=== PATIENT | female | born 1955 | race Caucasian/White ===

== ENCOUNTER 2016-10-02 13:29 | Emergency (ER) | payer MEDICAID ==
[2014-05-28 14:40] VITALS: BMI 36.1
[~2016-10-02 13:29] MED LIST: COUMADIN10 MG PO; COUMADIN5 MG PO; CYMBALTA60 MG PO; HYDROCODONE-APA1 TAB PO; NEURONTIN600 MG PO; PLAVIX75 MG PO; PRINIVIL20 MG PO; ULTRAM50 MG PO; VALIUM10 MG PO
== END 2016-10-02 15:59 | disposition home or self-care (01) ==
LOC: D.ER 13:29
DX: M54.10 Radiculopathy, site unspecified (principal)

== ENCOUNTER 2016-12-21 11:35 | Emergency (ER) | payer MEDICAID ==
[2014-05-28 14:40] VITALS: BMI 36.1
== END 2016-12-21 13:22 | disposition left against medical advice (07) ==
LOC: D.ER 11:35
DX: M25.559 Pain in unspecified hip (principal)

== ENCOUNTER 2016-12-30 11:46 | Emergency (ER) | payer MEDICAID ==
[2014-05-28 14:40] VITALS: BMI 36.1
[2016-12-30 12:49] LABS: BASOPHILS 0.9 % (0-2); EOSINOPHILS 23.4 % (0-7); HEMATOCRIT 36.2 % (36.0-48.0); HEMOGLOBIN 11.8 g/dL (12-16); IMMATURE GRANULOCYTES 0.4 % (0-5); LYMPHOCYTES 29.6 % (15-50); MCH 29.1 pg (26.0-34.0); MCHC 32.6 g/dL (31.0-37.0); MCV 89.4 fL (80.0-100.0); MONOCYTES 5.3 % (2-11); NEUTROPHILS 40.4 % (40-80); RBC 4.05 10x6/uL (4.00-5.40); RDW 15.3 % (11.5-14.5); WBC 10.4 10x3/uL (4.8-10.8)
[2016-12-30 12:50] LABS: PLATELET COUNT 393 10x3/uL (130-400)
[2016-12-30 12:58] LABS: INR 1.9 (0.85-1.17); PROTIME 21.7 SECONDS (11.6-15.0)
[2016-12-30 13:02] LABS: UDS - AMPHET NEGATIVE QUAL (NEGATIVE); UDS - BARB NEGATIVE QUAL (NEGATIVE); UDS - BENZO POSITIVE QUAL (NEGATIVE); UDS - COCAINE NEGATIVE QUAL (NEGATIVE); UDS - METH NEGATIVE QUAL (NEGATIVE); UDS - OPIATE NEGATIVE QUAL (NEGATIVE); UDS - PCP NEGATIVE QUAL (NEGATIVE); UDS - THC NEGATIVE QUAL (NEGATIVE)
[2016-12-30 13:04] LABS: ALBUMIN 3.4 g/dL (3.4-5.0); ANION GAP 12.7 mmol/L (8-16); APPEARANCE CLEAR (CLEAR); BILIRUBIN - TOTAL 0.17 mg/dL (0.2-1.3); CARBON DIOXIDE 26.5 mmol/L (21.0-32.0); COLOR YELLOW (YELLOW); CREATININE - SERUM 0.9 mg/dL (0.6-1.3); POTASSIUM - SERUM 4.2 mmol/L (3.5-5.1); PROTEIN - SERUM 7.1 g/dL (6.4-8.2)
[2016-12-30 13:05] LABS: BACTERIA FEW /hpf (NONE SEEN); BILIRUBIN NEGATIVE (NEGATIVE); EPITHELIAL CELLS 0-5 /hpf (0-5); GLUCOSE NEGATIVE (NEGATIVE); KETONE NEGATIVE (NEGATIVE); LEUKOCYTE ESTERASE TRACE (NEGATIVE); MUCUS <1+ /lpf (NONE SEEN); NITRITE NEGATIVE (NEGATIVE); PROTEIN NEGATIVE (NEGATIVE); UROBILINOGEN NORMAL (NORMAL); WHITE CELLS - URINE 0-5 /hpf (0-5)
== END 2016-12-30 15:25 | disposition home or self-care (01) ==
LOC: D.ER 11:46
PROVIDERS: Nurse Practitioner Family
DX: M25.50 Pain in unspecified joint (principal); J44.9 Chronic obstructive pulmonary disease, unspecified

== ENCOUNTER 2017-03-05 10:58 | Inpatient (IN) | payer MEDICAID ==
[2017-03-05 11:52] LABS: BASOPHILS 0.6 % (0-2); EOSINOPHILS 12.4 % (0-7); HEMATOCRIT 34.9 % (36.0-48.0); HEMOGLOBIN 10.8 g/dL (12-16); IMMATURE GRANULOCYTES 0.6 % (0-5); LYMPHOCYTES 23.5 % (15-50); MCH 28.3 pg (26.0-34.0); MCHC 30.9 g/dL (31.0-37.0); MCV 91.6 fL (80.0-100.0); MEAN PLATELET VOLUME 8.9 fL (7.4-10.4); MONOCYTES 9.5 % (2-11); NEUTROPHILS 53.4 % (40-80); PLATELET COUNT 347 10x3/uL (130-400); RBC 3.81 10x6/uL (4.00-5.40); RDW 15.4 % (11.5-14.5)
[2017-03-05 12:26] LABS: ALBUMIN 3.7 g/dL (3.4-5.0); ANION GAP 15.5 mmol/L (8-16); CALCIUM 9.6 mg/dL (8.5-10.1); CREATININE - SERUM 1.7 mg/dL (0.6-1.3); POTASSIUM - SERUM 4.5 mmol/L (3.5-5.1); PROTEIN - SERUM 6.9 g/dL (6.4-8.2)
[2017-03-05 12:35] LABS: BILIRUBIN - TOTAL 0.1 mg/dL (0.2-1.3)
[2017-03-05 13:01] LABS: APPEARANCE HAZY (CLEAR); BACTERIA MANY /hpf (NONE SEEN); BILIRUBIN NEGATIVE (NEGATIVE); COLOR YELLOW (YELLOW); EPITHELIAL CELLS 0-5 /hpf (0-5); GLUCOSE NEGATIVE (NEGATIVE); HYALINE CAST 0-5 /lpf (NONE SEEN); KETONE NEGATIVE (NEGATIVE); MUCUS >1+ /lpf (NONE SEEN); NITRITE POSITIVE (NEGATIVE); PROTEIN NEGATIVE (NEGATIVE); RED CELLS - URINE 0-5 /hpf (0-5); SPECIFIC GRAVITY 1.015 (1.005-1.020); UROBILINOGEN NORMAL (NORMAL)
[2017-03-05 13:02] LABS: AMORPHOUS SEDIMENT <1+ /lpf (NONE SEEN)
[2017-03-05 13:42] LABS: INR 1.48 (0.85-1.17); PROTIME 17.8 SECONDS (11.6-15.0)
[2017-03-05 13:43] LABS: APTT 36.7 SECONDS (22.8-39.4)
--- NOTE | 2017-03-05 20:30 | NUR ---
2030: Notified ER that bed is ready. Report recieved.
[2017-03-05 22:10] VITALS: BP 105/75
[2017-03-05] MEDS ORDERED: COUMADIN7.5 MG PO (22:11)
[2017-03-05] MEDS ORDERED: HYSINGLA ER30 MG PO (22:14)
[2017-03-05 22:24] VITALS: BP 128/81; BMI 33.9
--- NOTE | 2017-03-05 22:30 | NUR ---
2230: Pt arrived from ED via STR. Pt transferred to bed x3 RNs without difficulty. All monitors established and alarms on.
[2017-03-05 22:34] VITALS: BP 128/81
--- NOTE | 2017-03-05 22:40 | NUR ---
2240: Pt states she has no intention of harming self or others. Verbal contract made with patient to inform nurse of any changes. Pt states she has "been just going a lot lately and was real tired." Pt went on to state she has fibromyalgia and spasms in her right leg that are painful. Pt states she beleives she took too much medicine just trying to feel better, but did not want to harm herself.
--- NOTE | 2017-03-05 22:45 | NUR ---
2245: Pt rec'd resting HOB 30 degrees with eyes open to verbal. Pupils DAMARI+ bilat. SMCx4=bilat colliery clerk with commands. Pt conversive and speech is clear at this time. Pt c/o chronic pain in right leg and states she has fibromyalgia and has had previoud DVTs and stents in lower extrem. Pt breathing 022LNC with RR 18x with SPO2 97%. Lungs with crackles heard throughout with auscultation and MMP with no cyanosis noted. ABD soft NT BSx4 active. Pt states she has urinary frequeuncy and urgency at times. Bed alarm on and audible. Discussed fall risk with patient and she verbalized understanding.
--- NOTE | 2017-03-05 22:50 | NUR ---
2250: Pt requested water. Provided water at this time. Pt had no difficulty with swallow or speech at this time.
--- NOTE | 2017-03-05 23:00 | NUR ---
2300: Pt son called and update provided at this time.
--- NOTE | 2017-03-05 23:00 | NUR ---
2300: Pt requested bedpan. Bedpan placed and pt urinated small amount of clear, yellow UOP.
[2017-03-05 23:10] VITALS: BP 92/58
[2017-03-06] VITALS (23 sets, daily range): BP systolic 86–154; BP diastolic 52–93
--- NOTE | 2017-03-06 | NUR ---
0000: Pt resting with eyes closed at this time. Pt SR 70's on CM with SBP 120-130, remains on 022LNC with [id number] with SPO2 97%. Right arm PIV intact and remains saline locked at this time.
--- NOTE | 2017-03-06 01:00 | NUR ---
0100: Pt son called and states "this is not a suicide note." Pt went on in detail regarding his belief that something he found at home he previously thought was a suicide note, but now he thinks this is from some other time and is not a suicide note at all. Reassured family, but still seemed very concerned about patient condition, and states he was very worried that the trouble he caused. Pt son was rambiling and difficult to follow through conversation. Continued sometime about pt being a free spirit, rode with Veronique Gibbs, and quoted Jamal Veras. Continued to apologize for trouble. State's he is "flabbergasted."
--- NOTE | 2017-03-06 03:00 | NUR ---
0300: Pt remains resting with eyes closed at this time. Open to verbal and answers all questions. Pt denies any needs at this time, pt states she has pain, but understands she has to wait for MD.
--- NOTE | 2017-03-06 05:00 | NUR ---
0500: No change in pt RESP/CV/NV status. No change in pt IVF/UOP. Pt remains SR 70's on CM with SBP 80-90's.
[2017-03-06 05:09] LABS: BASOPHILS 0.2 % (0-2); EOSINOPHILS 9.1 % (0-7); HEMATOCRIT 34.9 % (36.0-48.0); HEMOGLOBIN 10.9 g/dL (12-16); IMMATURE GRANULOCYTES 0.3 % (0-5); LYMPHOCYTES 16.2 % (15-50); MCH 28.7 pg (26.0-34.0); MCHC 31.2 g/dL (31.0-37.0); MCV 91.8 fL (80.0-100.0); MEAN PLATELET VOLUME 8.9 fL (7.4-10.4); MONOCYTES 8.6 % (2-11); NEUTROPHILS 65.6 % (40-80); PLATELET COUNT 348 10x3/uL (130-400); RDW 15.7 % (11.5-14.5); WBC 10.6 10x3/uL (4.8-10.8)
[2017-03-06 05:20] LABS: INR 2.07 (0.85-1.17); PROTIME 23.3 SECONDS (11.6-15.0)
[2017-03-06 05:33] LABS: ALBUMIN 3.1 g/dL (3.4-5.0); ANION GAP 15.1 mmol/L (8-16); CALCIUM 8.6 mg/dL (8.5-10.1); CARBON DIOXIDE 22.4 mmol/L (21.0-32.0); POTASSIUM - SERUM 4.5 mmol/L (3.5-5.1); PROTEIN - SERUM 6.2 g/dL (6.4-8.2)
[2017-03-06 05:34] LABS: BILIRUBIN - TOTAL 0.09 mg/dL (0.2-1.3); CREATININE - SERUM 1.1 mg/dL (0.6-1.3)
--- NOTE | 2017-03-06 07:37 | NUR ---
UDS COLLECTED AND DELIVERED TO LAB
[2017-03-06 07:51] LABS: UDS - AMPHET NEGATIVE QUAL (NEGATIVE); UDS - BARB NEGATIVE QUAL (NEGATIVE); UDS - BENZO POSITIVE QUAL (NEGATIVE); UDS - COCAINE NEGATIVE QUAL (NEGATIVE); UDS - OPIATE POSITIVE QUAL (NEGATIVE); UDS - PCP NEGATIVE QUAL (NEGATIVE); UDS - THC NEGATIVE QUAL (NEGATIVE)
--- NOTE | 2017-03-06 08:52 | NUR ---
UP TO BSC AND THEN TO CHAIR FOR BREAKFAST
--- NOTE | 2017-03-06 10:07 | NUR ---
RIGHT FA IV INFILTRATED, REPLACED WITH 22G PIV TO RIGHT FA X ONE ATTEMPT
--- NOTE | 2017-03-06 11:00 | NUR ---
NO CHANGES NOTED AT PRESENT
--- NOTE | 2017-03-06 14:03 | NUR ---
NEURONTON NOT AVAILABLE FROM Rx AT PRESENT
--- NOTE | 2017-03-06 15:00 | NUR ---
NO CHANGES NOTED
--- NOTE | 2017-03-06 19:45 | NUR ---
RECEIVED CARE OF PT, ASSESSMENT PER FLOWSHEET. PT FOLLOWS COMMANDS, ORIENTED X 4, ON RA, HR SR ON CM, VSS. DENIES ANY NEEDS AT THIS TIME, CALL LIGHT IN REACH, BED LOW.
--- NOTE | 2017-03-06 20:05 | NUR ---
NO VISITORS PRESENT AT THIS TIME, VSS, CONT POC.
--- NOTE | 2017-03-06 23:15 | NUR ---
REASSESSMENT PER FLOWSHEET, NO ACUTE CHANGES NOTED. PT ABLE TO REPOSITION SELF, HR SR ON CM, BED LOW, CALL LIGHT IN REACH.
[2017-03-07] VITALS (25 sets, daily range): BP systolic 128–172; BP diastolic 63–103
--- NOTE | 2017-03-07 01:40 | NUR ---
ASSISTED PT TO BSC, VOIDED 200CC OF CLEAR YELLOW URINE, BACK TO BED WITHOUT INCIDENT.
--- NOTE | 2017-03-07 03:15 | NUR ---
REASSESSMENT PER FLOWSHEET, NO ACUTE CHANGES NOTED, PT DENIES ANY NEEDS, CONT TO MONITOR.
[2017-03-07 04:09] LABS: BASOPHILS 0.5 % (0-2); EOSINOPHILS 13.2 % (0-7); HEMATOCRIT 32.4 % (36.0-48.0); HEMOGLOBIN 10.3 g/dL (12-16); IMMATURE GRANULOCYTES 0.3 % (0-5); LYMPHOCYTES 39.4 % (15-50); MCH 28.4 pg (26.0-34.0); MCHC 31.8 g/dL (31.0-37.0); MEAN PLATELET VOLUME 8.8 fL (7.4-10.4); MONOCYTES 9.2 % (2-11); NEUTROPHILS 37.4 % (40-80); PLATELET COUNT 322 10x3/uL (130-400); RBC 3.63 10x6/uL (4.00-5.40); RDW 15.2 % (11.5-14.5)
[2017-03-07 04:10] LABS: MCV 89.3 fL (80.0-100.0)
[2017-03-07 04:15] LABS: PROTIME 19.5 SECONDS (11.6-15.0)
[2017-03-07 04:16] LABS: INR 1.65 (0.85-1.17)
[2017-03-07 04:20] LABS: ALBUMIN 2.8 g/dL (3.4-5.0); ALKALINE PHOSPHATASE 84 U/L (46-116); ALT (SGPT) 11 U/L (10-68); BILIRUBIN - TOTAL 0.21 mg/dL (0.2-1.3); CALC OSMOLALITY 281 mosm/kg (275-300); CALCIUM 8.7 mg/dL (8.5-10.1); CHLORIDE - SERUM 107 mmol/L (98-107); GLUCOSE 97 mg/dL (74-106); POTASSIUM - SERUM 3.9 mmol/L (3.5-5.1); PROTEIN - SERUM 6.2 g/dL (6.4-8.2); SODIUM 141 mmol/L (136-145); UREA NITROGEN 14 mg/dL (7-18)
[2017-03-07 04:21] LABS: CREATININE - SERUM 0.7 mg/dL (0.6-1.3); eGFR NON AFRICAN AMERICAN 90 mL/min (90-120)
--- NOTE | 2017-03-07 05:20 | NUR ---
AM LABS REVIEWED, NOTHING TO TREAT PER ELECTROLYTE PROTOCOL.
--- NOTE | 2017-03-07 08:00 | NUR ---
UP TO CHAIR FOR BREAKFAST
--- NOTE | 2017-03-07 19:00 | NUR ---
Received patient laying in bed with eyes open watching TV, assessment completed per flowsheet. Patient AO x4, calm and cooperative. Patient denies thoughts of self harm, states OD was accidental due to recent prescription change. Eyes PERRLA @ 4mm with brisk response, sclera is white and clear. S1/S2 noted NSR on telemetry with HR 81, rhythmic and regular. Breathing is even and unlabored on room air with O2 sat 98%, lung sounds clear throughout. Abdomen is soft and flat with bowel sounds active x4, non-tender. Full ROM all extremities with all pulses palpable, cap refill < 3 sec with skin warm/dry. 22g PIV R forearm patent, NS @ 5ml/hr infusing. Patient denies pain or other needs at this time, all VSS and will continue to monitor.
--- NOTE | 2017-03-07 21:00 | NUR ---
No visitors at this time, all HS meds given without difficulty. Patient calm and cooperative, demeanor is pleasant. Patient denies pain or other needs at this time, all VSS and will continue to monitor.
--- NOTE | 2017-03-07 23:00 | NUR ---
Reassessment completed per flowsheet, patient sleeping in bed with eyes closed. Patient AO x4, calm and cooperative. Denies thoughts of self harm, affect is open and genial. S1/S2 noted NSR on telemetry with HR 67, rhythmic and regular. Breathing is even and unlabored on room air with O2 sat 96%, lung sounds clear throughout. 22g PIV R forearm patent with fluids infusing. All pulses palpable with cap refill < 3 sec, full ROM all extremities with skin warm/dry to touch. Patient denies pain or other needs at this time, all VSS and will continue to monitor.
[2017-03-08] VITALS (18 sets, daily range): BP systolic 140–178; BP diastolic 81–106
--- NOTE | 2017-03-08 00:07 | NUR ---
Patient awake in bed watching TV, c/o chronic pain 3/10 feet. PRN medication given, and will reassess.
--- NOTE | 2017-03-08 01:00 | NUR ---
Patient resting in bed with eyes closed, breathing is even and unlabored on room air with O2 sat 97%. Patient denies pain or other needs at this time, all VSS and will continue to monitor.
--- NOTE | 2017-03-08 03:00 | NUR ---
Reassessment completed per flowsheet, patient sleeping in bed with eyes closed. Patient AO x4, calm and cooperative. Denies thoughts of self harm, demeanor is pleasant and genial. S1/S2 noted NSR on telemetry with HR 79, rhythmic and regular. Breathing is even and unlabored on room air with O2 sat 96%, lung sounds clear throughout. All pulses palpable with cap refill < 3 sec, skin warm/dry. Patient denies pain or other needs at this time, all VSS and will continue to monitor.
[2017-03-08 05:19] LABS: BASOPHILS 0.7 % (0-2); EOSINOPHILS 11.8 % (0-7); HEMATOCRIT 33.7 % (36.0-48.0); HEMOGLOBIN 10.7 g/dL (12-16); IMMATURE GRANULOCYTES 0.3 % (0-5); LYMPHOCYTES 34.6 % (15-50); MCH 28.3 pg (26.0-34.0); MCHC 31.8 g/dL (31.0-37.0); MCV 89.2 fL (80.0-100.0); MEAN PLATELET VOLUME 8.9 fL (7.4-10.4); MONOCYTES 8.3 % (2-11); NEUTROPHILS 44.3 % (40-80); PLATELET COUNT 330 10x3/uL (130-400); RBC 3.78 10x6/uL (4.00-5.40); RDW 15.3 % (11.5-14.5); WBC 7.4 10x3/uL (4.8-10.8)
--- NOTE | 2017-03-08 05:30 | NUR ---
PT C/O OF PAIN, ORDERED PAIN MED GIVEN
[2017-03-08 05:40] LABS: ALBUMIN 2.8 g/dL (3.4-5.0); ALKALINE PHOSPHATASE 83 U/L (46-116); ALT (SGPT) 10 U/L (10-68); CALC OSMOLALITY 279 mosm/kg (275-300); CALCIUM 8.7 mg/dL (8.5-10.1); CARBON DIOXIDE 26.3 mmol/L (21.0-32.0); CHLORIDE - SERUM 106 mmol/L (98-107); CREATININE - SERUM 0.8 mg/dL (0.6-1.3); GLUCOSE 99 mg/dL (74-106); POTASSIUM - SERUM 4.1 mmol/L (3.5-5.1); PROTEIN - SERUM 5.9 g/dL (6.4-8.2); SODIUM 140 mmol/L (136-145); UREA NITROGEN 16 mg/dL (7-18); eGFR NON AFRICAN AMERICAN 77 mL/min (90-120)
[2017-03-08 06:59] LABS: PROTIME 15.6 SECONDS (11.6-15.0)
[2017-03-08 07:00] LABS: INR 1.26 (0.85-1.17)
--- NOTE | 2017-03-08 07:30 | NUR ---
PT AA&O. DENIES ANY THOUGHTS OF HURTING SELF. DENIES PAIN AT THIS TIME. ON ROOM AIR WITH O2 SAT OF 98%. BP ELEVATED 160/91. HR 76 SYNUS RHYTHM. LUNGS ARE CLEAR THROUGH OUT. S1S2 AUDIBLE. BS ACTIVE X 4 QUADRANTS. PT ABLE TO GET SELF ONTO BEDSIDE COMODE. LARGE DARK BROWN BM NOTED. URINE YELLOW AND CONCENTRATED. PUPILS 4MM BRISK REACTION. RADIAL PULSES 2+ EQUAL BILATERALLY. PEDAL PULSES 2+ EQUAL BILATERALLY. SKIN IS WARM AND DRY. NO SKIN ISSUES NOTED AT THIS TIME. BREAKFAST TRAY BROUGHT IN ROOM. PT DENIES OTHER NEEDS. CALL LIGHT IS IN REACH. BED IS IN LOW POSITION. WILL CONTINUE TO MONITOR.
--- NOTE | 2017-03-08 09:37 | NUR ---
PT WALKED WITH PT. SITTING IN CHAIR. IN GOOD SPIRITS. AM MEDS GIVEN WITH NO COMPLICATIONS. RATED PAIN 7/10. ULTRAM GIVEN PER ORDERS. WILL CONTINUE TO MONITOR.
--- NOTE | 2017-03-08 11:28 | NUR ---
REASSESSMENT COMPLETED. PT AWAKE AND ALERT. DENIES THOUGHTS OF HARMING SELF. RATES PAIN 0/10 AT THIS TIME. BP 148/89 (112), HR 73, O2 SAT 97% ON RA. PT DENIES OTHER NEDDS AT THIS TIME. WILL CONTINUE TO MONTITOR.
--- NOTE | 2017-03-08 13:32 | NUR ---
PT SITTING UP IN BED EATING LUNCH. RATES PAIN 6/10 ON HER BACK AND HER RIGHT LEG. TRAMADOL GIVEN PER ORDERS FOR PAIN. WILL CONTINUE TO MONITOR.
--- NOTE | 2017-03-08 13:49 | NUR ---
* Is the patient Alert and Oriented? Yes 0 * How many steps to enter\exit or inside your home? 6 0 * PCP Dr. Donahue 0 * Pharmacy [facility] 0 * Preadmission Environment Home with Family 0 * ADLs Partial Dependent 0 * Partial ADLs (Assistance needed) Ambulation 0 * Equipment Rolling Walker 0 * List name and contact numbers for known caregivers / representatives who currently or will assist patient after discharge: Son - Henrry Vásquez [phone] 0 * Additional services required to return to the preadmission environment? No 0 * Can the patient safely return to the preadmission environment? Yes 0 * Has this patient been hospitalized within the prior 30 days at any hospital? No Patient Name: NOHEMY VÁSQUEZ Admission Status: ER Accout number: [id number] Admission Date: 03-07-2017 : 1955 Admission Diagnosis: Attending: CHRISTINE ANNA Current LOS: 1 Anticipated DC Date: 03-08-2017 Planned Disposition: Home Primary Insurance: MEDICAID [place] Discharge Planning Comments: CM met with patient to assess dc plans/needs. Patient states she lives at home with her son, Hnerry. She states she uses a walker when she is away from home. She denies having home health services, but describes having homemaker services 4 days per week, 3 hours per day. She primarily uses the [employer] bus for transportation. Discussed Dr. Pizarro's recommendations of outpatient counseling services - explained she would need to go to the walk in clinic at [facility] between 0830 -1530 for assessment. Verbalized understanding. Answered all questions. Anticipate dc this afternoon. Gardening Supervisor: Darlene Moore
--- NOTE | 2017-03-08 15:00 | NUR ---
PT AA&O. REASSESSMENT COMPLETED. REPORTS PAIN 0/10. SITTING UP EATING ICE CREAM. DENIES OTHER NEEDS AT THIS TIME.
--- NOTE | 2017-03-08 17:21 | NUR ---
PT SITTING UP IN BED. EATING DINNER. DENIES OTHER NEEDS AT THIS TIME. WILL CONTINUE TO MONITOR.
--- NOTE | 2017-03-08 17:31 | NUR ---
PT RATED PAIN 6/10 ON BACK AND RIGHT LEG. TRAMADOL GIVEN PER ORDERS FOR PAIN. PT DENIES OTHER NEEDS AT THIS TIME.
--- NOTE | 2017-03-08 19:00 | NUR ---
REPORT RECIEVED, SHIFT ASSESSMENT COMPLETE, PT IS ALERT AND ORIENTED, ON RA WITH 97% O2 SAT. LUNGS CLEAR IN ALL LOBES, S1S2, CM-NSR, PATENT RIGHT FA PIV.. S/L...ABDOMEN IS SOFT AND ROUND WITH ACTIVE BS, BSC AT BEDSIDE, ALL PPP, VSS, CALL LIGHT IN REACH
--- NOTE | 2017-03-08 21:15 | NUR ---
HS MEDS GIVEN, PT DAUGHTER ON PHONE, PT STATES "ITS OK TO GIVE MY DAUGHTER INFORMATION", UPDATE GIVEN
--- NOTE | 2017-03-09 01:03 | NUR ---
PT C/O OF HEADACHE 11/09, ORDERED PAIN MED GIVEN
[2017-03-09 03:00] VITALS: BP 160/100
[2017-03-09 03:54] LABS: BASOPHILS 0.5 % (0-2); EOSINOPHILS 11.9 % (0-7); HEMOGLOBIN 10.4 g/dL (12-16); IMMATURE GRANULOCYTES 0.5 % (0-5); MCH 28.9 pg (26.0-34.0); MCHC 32.5 g/dL (31.0-37.0); MCV 88.9 fL (80.0-100.0); MONOCYTES 10.1 % (2-11); PLATELET COUNT 335 10x3/uL (130-400); RDW 15.3 % (11.5-14.5); WBC 8.3 10x3/uL (4.8-10.8)
[2017-03-09 04:14] LABS: ALBUMIN 2.7 g/dL (3.4-5.0); ALKALINE PHOSPHATASE 77 U/L (46-116); ALT (SGPT) 11 U/L (10-68); CALC OSMOLALITY 279 mosm/kg (275-300); CALCIUM 8.4 mg/dL (8.5-10.1); CARBON DIOXIDE 26.7 mmol/L (21.0-32.0); CHLORIDE - SERUM 104 mmol/L (98-107); CREATININE - SERUM 0.8 mg/dL (0.6-1.3); GLUCOSE 87 mg/dL (74-106); POTASSIUM - SERUM 4.2 mmol/L (3.5-5.1); PROTEIN - SERUM 6.3 g/dL (6.4-8.2); SODIUM 140 mmol/L (136-145); UREA NITROGEN 18 mg/dL (7-18); eGFR NON AFRICAN AMERICAN 77 mL/min (90-120)
[2017-03-09 04:16] LABS: INR 1.05 (0.85-1.17); PROTIME 13.6 SECONDS (11.6-15.0)
[2017-03-09 04:20] LABS: BILIRUBIN - TOTAL 0.09 mg/dL (0.2-1.3)
--- NOTE | 2017-03-09 11:51 | NUR ---
PT UP AMB WITH PT THIS AM. DID EAT BREAKFAST AND LUNCH W/O PROBLEMS. DC ORDERS WRITTEN AND PT HAS CALLED FOR A RIDE HOME BUT THEY CAN'T BE HERE UNTIL AFTER LUNCH.
== END 2017-03-09 13:55 | disposition home or self-care (01) | DRG 917 ==
LOC: D.ER 10:58 → OBSVTIME 15:02 → D.MS 15:02 → D.SDCHOLD 15:02 → D.MS 15:02 → D.SDCHOLD 16:58 → D.ICU 20:39
PROVIDERS: Emergency Medicine; Physician Assistant; ADMIT Family Medicine
DX: T42.4X1A Poisoning by benzodiazepines, accidental (unintentional), initial encounter (principal); G93.41 Metabolic encephalopathy; N17.9 Acute kidney failure, unspecified; N39.0 Urinary tract infection, site not specified; F41.1 Generalized anxiety disorder; I10 Essential (primary) hypertension; I73.9 Peripheral vascular disease, unspecified; J44.9 Chronic obstructive pulmonary disease, unspecified; F32.9 Major depressive disorder, single episode, unspecified; M54.10 Radiculopathy, site unspecified; M79.7 Fibromyalgia; Z79.01 Long term (current) use of anticoagulants; G89.29 Other chronic pain; G47.00 Insomnia, unspecified; Z86.718 Personal history of other venous thrombosis and embolism; Z87.891 Personal history of nicotine dependence

== ENCOUNTER 2017-07-01 15:16 | Emergency (ER) | payer MEDICAID ==
[~2017-07-01 15:16] MED LIST changes: +COUMADIN7.5 MG PO; +HYSINGLA ER30 MG PO
[2017-07-01 16:23] LABS: APPEARANCE CLEAR (CLEAR); BILIRUBIN NEGATIVE (NEGATIVE); COLOR YELLOW (YELLOW); GLUCOSE NEGATIVE (NEGATIVE); KETONE NEGATIVE (NEGATIVE); NITRITE NEGATIVE (NEGATIVE); PROTEIN TRACE mg/dL (NEGATIVE); SPECIFIC GRAVITY 1.025 (1.005-1.020); UROBILINOGEN NORMAL (NORMAL)
[2017-07-01 16:25] LABS: BACTERIA FEW /hpf (NONE SEEN); RED CELLS - URINE OCC /hpf (0-5); WHITE CELLS - URINE 0-5 /hpf (0-5); YEAST OCC /hpf (NONE SEEN)
[2017-07-01 16:34] LABS: BASOPHILS 0.6 % (0-2); EOSINOPHILS 3.5 % (0-7); HEMATOCRIT 34.5 % (36.0-48.0); HEMOGLOBIN 10.9 g/dL (12-16); IMMATURE GRANULOCYTES 1.5 % (0-5); LYMPHOCYTES 21.9 % (15-50); MCH 28.3 pg (26.0-34.0); MCHC 31.6 g/dL (31.0-37.0); MCV 89.6 fL (80.0-100.0); MEAN PLATELET VOLUME 8.8 fL (7.4-10.4); MONOCYTES 13.7 % (2-11); NEUTROPHILS 58.8 % (40-80); PLATELET COUNT 347 10x3/uL (130-400); RBC 3.85 10x6/uL (4.00-5.40); RDW 16.4 % (11.5-14.5); WBC 12.4 10x3/uL (4.8-10.8)
[2017-07-01 16:53] LABS: INR 2.34 (0.85-1.17)
[2017-07-01 16:54] LABS: ALBUMIN 3.2 g/dL (3.4-5.0); ANION GAP 11.1 mmol/L (8-16); BILIRUBIN - TOTAL 0.13 mg/dL (0.2-1.3); CARBON DIOXIDE 25.2 mmol/L (21.0-32.0); CREATININE - SERUM 1.9 mg/dL (0.6-1.3); POTASSIUM - SERUM 4.3 mmol/L (3.5-5.1); PROTEIN - SERUM 7.1 g/dL (6.4-8.2)
[2017-07-01 17:02] LABS: MAGNESIUM - SERUM 1.9 mg/dL (1.8-2.4)
== END 2017-07-01 18:58 | disposition home or self-care (01) ==
LOC: D.ER 15:16
PROVIDERS: Nurse Practitioner Family
DX: J18.9 Pneumonia, unspecified organism (principal); L03.114 Cellulitis of left upper limb; M79.642 Pain in left hand; J44.9 Chronic obstructive pulmonary disease, unspecified; I10 Essential (primary) hypertension

== ENCOUNTER → 2017-08-24 18:00 | Outpatient (CLI) | payer MEDICAID | END | disposition home or self-care (01) | LOC: D.MAMMO 13:45 | DX: Z12.31 Encounter for screening mammogram for malignant neoplasm of breast (principal) ==

== ENCOUNTER 2017-10-22 19:49 | Emergency (ER) | payer MEDICAID ==
[~2017-10-22] VITALS: Ht 157.5 cm; Wt 84.1 kg
[2017-10-22 20:45] VITALS: Ht 157.5 cm; Wt 84.1 kg
[2017-10-22] MEDS ORDERED: PERMETHRIN60 GM TOPICAL (21:52)
[2017-10-22 22:20] VITALS: BP 128/88
== END 2017-10-22 22:20 | disposition home or self-care (01) ==
LOC: D.ER 19:49
DX: B86 Scabies (principal)

== ENCOUNTER 2017-12-15 11:58 | Emergency (ER) | payer MEDICAID ==
[~2017-12-15] VITALS: Ht 157.5 cm; Wt 75.0 kg
[~2017-12-15 11:58] MED LIST changes: +PERMETHRIN60 GM TOPICAL
[2017-12-15 12:00] VITALS: Ht 157.5 cm; Wt 75.0 kg
[2017-12-15 13:31] LABS: BASOPHILS 0.5 % (0-2); EOSINOPHILS 4.6 % (0-7); HEMATOCRIT 43.9 % (36.0-48.0); HEMOGLOBIN 15.1 g/dL (12-16); IMMATURE GRANULOCYTES 0.7 % (0-5); LYMPHOCYTES 21.9 % (15-50); MCH 29.2 pg (26.0-34.0); MCHC 34.4 g/dL (31.0-37.0); MCV 84.7 fL (80.0-100.0); MEAN PLATELET VOLUME 9.5 fL (7.4-10.4); MONOCYTES 8.5 % (2-11); NEUTROPHILS 63.8 % (40-80); PLATELET COUNT 345 10x3/uL (130-400); RBC 5.18 10x6/uL (4.00-5.40); RDW 15.6 % (11.5-14.5); WBC 14.6 10x3/uL (4.8-10.8)
[2017-12-15 14:03] LABS: ALBUMIN 4.5 g/dL (3.4-5.0); ANION GAP 18.2 mmol/L (8-16); BILIRUBIN - TOTAL 0.4 mg/dL (0.2-1.3); CALCIUM 9.8 mg/dL (8.5-10.1); CARBON DIOXIDE 20.2 mmol/L (21.0-32.0); CREATININE - SERUM 1.2 mg/dL (0.6-1.3); POTASSIUM - SERUM 4.4 mmol/L (3.5-5.1); PROTEIN - SERUM 8.1 g/dL (6.4-8.2)
[2017-12-15 15:01] LABS: APPEARANCE TURBID (CLEAR); COLOR YELLOW (YELLOW)
[2017-12-15 15:02] LABS: BILIRUBIN NEGATIVE (NEGATIVE); GLUCOSE NEGATIVE (NEGATIVE); KETONE MODERATE mg/dL (NEGATIVE); NITRITE POSITIVE (NEGATIVE); PROTEIN TRACE mg/dL (NEGATIVE); UROBILINOGEN NORMAL (NORMAL); WHITE CELLS - URINE 0-5 /hpf (0-5)
[2017-12-15 15:03] LABS: AMORPHOUS SEDIMENT >1+ /lpf (NONE SEEN); BACTERIA MODERATE /hpf (NONE SEEN)
[2017-12-15] MEDS ORDERED: MACROBID100 MG PO (18:24)
[2017-12-15] MEDS ORDERED: KEFLEX500 MG PO (18:24)
[2017-12-15 19:00] VITALS: BP 165/98
== END 2017-12-15 19:00 | disposition home or self-care (01) ==
LOC: D.ER 11:58
PROVIDERS: Family Medicine
DX: R10.9 Unspecified abdominal pain (principal); E27.8 Other specified disorders of adrenal gland; I10 Essential (primary) hypertension; I70.401 Unspecified atherosclerosis of autologous vein bypass graft(s) of the extremities, right leg; R11.0 Nausea; N39.0 Urinary tract infection, site not specified

== ENCOUNTER 2018-08-19 16:20 | Inpatient (IN) | payer MEDICAID ==
[~2018-08-19] VITALS: Ht 157.5 cm; Wt 75.8 kg
[~2018-08-19 16:20] MED LIST changes: +KEFLEX500 MG PO; +MACROBID100 MG PO
[2018-08-19] MEDS ORDERED: PROZAC20 MG PO (16:42)
[2018-08-19] MEDS ORDERED: ZANAFLEX2 M1 PO (16:43)
[2018-08-19] MEDS ORDERED: ULTRAM50 MG PO (16:43)
[2018-08-19 16:44] VITALS: BP 130/73; BMI 30.6
--- NOTE | 2018-08-19 17:08 | NUR ---
PT SITTING UP IN BED. AAOX4. ANSWERS ADMIT QUESTIONS APPROPRIATE. NO S/S OF ACUTE DISTRESS. CL IN PLACE. FAMILY AT BEDSIDE.
[2018-08-19 18:13] LABS: BASOPHILS 0.5 % (0-2); HEMATOCRIT 39.2 % (36.0-48.0); HEMOGLOBIN 13.3 g/dL (12-16); IMMATURE GRANULOCYTES 0.5 % (0-5); LYMPHOCYTES 36.9 % (15-50); MCH 29.7 pg (26.0-34.0); MCHC 33.9 g/dL (31.0-37.0); MCV 87.5 fL (80.0-100.0); MEAN PLATELET VOLUME 8.8 fL (7.4-10.4); MONOCYTES 7.1 % (2-11); PLATELET COUNT 276 10x3/uL (130-400); RBC 4.48 10x6/uL (4.00-5.40); RDW 15.1 % (11.5-14.5); WBC 8.5 10x3/uL (4.8-10.8)
[2018-08-19 18:29] LABS: ALBUMIN 3.6 g/dL (3.4-5.0); ALKALINE PHOSPHATASE 78 U/L (46-116); ALT (SGPT) 26 U/L (10-68); CALC OSMOLALITY 284 mosm/kg (275-300); CALCIUM 8.9 mg/dL (8.5-10.1); CARBON DIOXIDE 28.4 mmol/L (21.0-32.0); CHLORIDE - SERUM 103 mmol/L (98-107); CREATININE - SERUM 0.8 mg/dL (0.6-1.3); GLUCOSE 106 mg/dL (74-106); POTASSIUM - SERUM 4.8 mmol/L (3.5-5.1); PROTEIN - SERUM 7.3 g/dL (6.4-8.2); SODIUM 139 mmol/L (136-145); UREA NITROGEN 32 mg/dL (7-18); eGFR NON AFRICAN AMERICAN 77 mL/min (90-120)
[2018-08-19 18:32] LABS: INR 1.04 (0.85-1.17); PROTIME 13.1 SECONDS (11.6-15.0)
--- NOTE | 2018-08-19 18:32 | NUR ---
SPOKE WITH DR MOSLEY ABOUT THE CONSULT. REQUESTED TO ASK TO SEE "IF DR LARES WANTED THE PT TO BE SEEN TONIGHT." SPOKE WITH DR EAGLE WHO WAS GLASS SETTER WHO SPOKE WITH DR MOSLEY ABOUT THE PT CONDITION. NO S/S OF ACUTE DISTRESS. CL IN PLACE.
--- NOTE | 2018-08-19 19:25 | NUR ---
PT RESTING IN BED TALKING ON PHONE. NO S/S OF ACUTE DISTRESS. CL IN PLACE.
[2018-08-19 19:56] VITALS: BP 144/60
[2018-08-19 20:04] LABS: HEMATOCRIT 38.6 % (36.0-48.0); HEMOGLOBIN 13.2 g/dL (12-16); MCH 29.9 pg (26.0-34.0); MCHC 34.2 g/dL (31.0-37.0); MCV 87.3 fL (80.0-100.0); MEAN PLATELET VOLUME 8.8 fL (7.4-10.4); RBC 4.42 10x6/uL (4.00-5.40); RDW 15.1 % (11.5-14.5); WBC 8.4 10x3/uL (4.8-10.8)
--- NOTE | 2018-08-19 20:41 | NUR ---
APTT CAME BACK AT 29, DR EAGLE CALLED TO VERIFY HEPARIN GTTS
[2018-08-20] VITALS: BP 97/54
--- NOTE | 2018-08-20 05:30 | NUR ---
I have reviewed this patient and I concur with the Shift Assessment completed by the Licensed Practical Nurse today this shift.
[2018-08-20 05:36] LABS: ALBUMIN 3.3 g/dL (3.4-5.0); ANION GAP 12.1 mmol/L (8-16); BILIRUBIN - TOTAL 0.23 mg/dL (0.2-1.3); CALCIUM 8.4 mg/dL (8.5-10.1); CARBON DIOXIDE 26.2 mmol/L (21.0-32.0); CREATININE - SERUM 0.9 mg/dL (0.6-1.3); POTASSIUM - SERUM 4.3 mmol/L (3.5-5.1); PROTEIN - SERUM 6.5 g/dL (6.4-8.2)
--- NOTE | 2018-08-20 07:49 | NUR ---
AAOX4. ANXIOUS. TALKING FAST. REDIRECTED PT WITH SUCCESS. PT ASKED FOR OJ. BROUGHT PT OJ. NO S/S OF ACUTE DISTRESS. CL IN PLACE.
[2018-08-20 08:59] VITALS: BP 98/64
[2018-08-20 10:44] LABS: HEMATOCRIT 36.8 % (36.0-48.0); HEMOGLOBIN 12.3 g/dL (12-16); MCH 29.4 pg (26.0-34.0); MCHC 33.4 g/dL (31.0-37.0); MEAN PLATELET VOLUME 9.1 fL (7.4-10.4); PLATELET COUNT 288 10x3/uL (130-400); RBC 4.18 10x6/uL (4.00-5.40); RDW 15.3 % (11.5-14.5); WBC 7.9 10x3/uL (4.8-10.8)
[2018-08-20 11:35] LABS: EOSINOPHILS 5 % (0-7); LYMPHOCYTES 31 % (15-50); MONOCYTES 5 % (2-11); NEUTROPHILS 31 % (40-80); PLATELET ESTIMATE NORMAL
[2018-08-20 11:36] LABS: ANISOCYTOSIS 2+
[2018-08-20 12:16] VITALS: Ht 157.5 cm; Wt 75.8 kg
[2018-08-20 14:48] VITALS: BP 114/60
[2018-08-20 16:21] LABS: INR 1.16 (0.85-1.17); PROTIME 14.3 SECONDS (11.6-15.0)
[2018-08-20 16:22] LABS: APTT 47.9 SECONDS (22.8-39.4)
[2018-08-20 17:12] VITALS: BP 124/79
--- NOTE | 2018-08-20 18:31 | NUR ---
PT RESTING IN BED. AT BEDSIDE. NO S/S OF ACUTE DISTRESS. CL IN PLACE.
--- NOTE | 2018-08-20 19:15 | NUR ---
RECEIVED CARE FROM DAY NURSE. LYING IN BED WITH SPOUSE AT SIDE. REPORTS NO NEEDS AT THIS TIME. CALL LIGHT AT SIDE. IV INFUSING PER ORDER TO PATENT LEFT FA.
[2018-08-20 19:31] VITALS: BP 115/58
[2018-08-21] VITALS: BP 154/59
--- NOTE | 2018-08-21 00:19 | NUR ---
I have reviewed this patient and I concur with the Shift Assessment completed by the Licensed Practical Nurse today this shift.
--- NOTE | 2018-08-21 06:21 | NUR ---
SPOKE WITH LAB ABOUT PT TIMED PTT FOR 429. REPORTS THEY ARE STILL OVER HERE DRAWING LABS.
[2018-08-21 07:47] LABS: ALBUMIN 3.2 g/dL (3.4-5.0); ALKALINE PHOSPHATASE 67 U/L (46-116); ALT (SGPT) 21 U/L (10-68); BILIRUBIN - TOTAL 0.17 mg/dL (0.2-1.3); CALC OSMOLALITY 279 mosm/kg (275-300); CALCIUM 8.7 mg/dL (8.5-10.1); CHLORIDE - SERUM 104 mmol/L (98-107); CREATININE - SERUM 0.7 mg/dL (0.6-1.3); GLUCOSE 94 mg/dL (74-106); POTASSIUM - SERUM 4.6 mmol/L (3.5-5.1); PROTEIN - SERUM 6.4 g/dL (6.4-8.2); SODIUM 138 mmol/L (136-145); UREA NITROGEN 24 mg/dL (7-18); eGFR NON AFRICAN AMERICAN 90 mL/min (90-120)
--- NOTE | 2018-08-21 07:55 | NUR ---
AAOX4. CO OF "L LEG PAIN" "I DO NOTY UNDER STAND WHY I GET NAUSEOUS WHEN I NEED TO PEE." TOLD PT TO SPEAK WITH MD ABOUT THE ISSUE. NO S/S OF ACUTE DISTRESS. AT BEDSIDE. CL IN PLACE.
[2018-08-21 08:45] VITALS: BP 132/68
[2018-08-21 12:00] VITALS: BP 114/72
[2018-08-21 14:39] LABS: INR 1.22 (0.85-1.17); PROTIME 14.9 SECONDS (11.6-15.0)
[2018-08-21 16:30] VITALS: BP 109/55
--- NOTE | 2018-08-21 18:12 | NUR ---
PT RESTING IN BED. CO OF "FEET BURNING AND SHOOTING BUT I HAVE BEEN ON THEM TODAY. " L FOOT REDDNESS AND SWELLING NOTED. NO S/S OF ACUTE DISTRESS. CL IN PLACE.
[2018-08-21 20:31] VITALS: BP 116/53
--- NOTE | 2018-08-22 00:38 | NUR ---
PT C/O UNCOMFORTABLE FEELING TO LEFT SIDE OF NECK UP INTO HEAD. "LIKE IT HAS A BAND AROUND IT" C/O THIS GOING ON FOR 10-15 MINUTES. REPORTS SIMULAR EPISODES BEFORE BUT NOT BAD. EYES EQUAL AND REACTIVE TO LIGHT. TONGUE MIDLINE. FACE SYMETRICAL. EQUAL DIRECTOR OF ELEMENTARY EDUCATION IN HANDS. CAN RAISE ARMS ABOVE HEAD EQUALLY. WHILE SPEAKING WITH PT SHE REPORTS RELIEF OF SYMPTOMS. PT REPORTS SHE HAS SEVERE ANXIETY AND CONTRIBUTES THIS TO THE PROBLEM.
--- NOTE | 2018-08-22 02:56 | NUR ---
I have reviewed this patient and I concur with the Shift Assessment completed by the Licensed Practical Nurse today this shift.
[2018-08-22 04:59] VITALS: BP 109/49
[2018-08-22 05:36] LABS: INR 1.18 (0.85-1.17); PROTIME 14.5 SECONDS (11.6-15.0)
[2018-08-22 05:37] LABS: ALBUMIN 3.2 g/dL (3.4-5.0); ALKALINE PHOSPHATASE 75 U/L (46-116); ALT (SGPT) 20 U/L (10-68); BILIRUBIN - TOTAL 0.13 mg/dL (0.2-1.3); CALC OSMOLALITY 276 mosm/kg (275-300); CALCIUM 8.7 mg/dL (8.5-10.1); CHLORIDE - SERUM 102 mmol/L (98-107); CREATININE - SERUM 0.8 mg/dL (0.6-1.3); GLUCOSE 136 mg/dL (74-106); PROTEIN - SERUM 6.4 g/dL (6.4-8.2); SODIUM 135 mmol/L (136-145); UREA NITROGEN 27 mg/dL (7-18); eGFR NON AFRICAN AMERICAN 77 mL/min (90-120)
[2018-08-22 09:13] VITALS: BP 111/53
--- NOTE | 2018-08-22 10:49 | NUR ---
MORNING ASSESSMENT COMPLETE. SEE ASSESSMENT FLOWSHEET FOR FURTHER DETAILS. PT LYING IN BED AAO X4 TO PERSON, PLACE, TIME, AND SITUATION. DENIES NEEDS AT THIS TIME. CL IN REACH. SIDE RAILS UP X3 FOR PT SAEFTY. BED IN LOWEST POSITION.
[2018-08-22 13:56] VITALS: BP 107/49
--- NOTE | 2018-08-22 14:01 | NUR ---
NUTRITION F/U PT TOLERATING AHA DIET WITH 100% INTAKE RECENT MEALS. WILL CONTINUE TO PROVIDE CURRENT DIET, MONITOR PO INTAKE. RD FOLLOWING
[2018-08-22 17:04] VITALS: BP 114/50
[2018-08-22 20:00] VITALS: BP 116/62
--- NOTE | 2018-08-22 20:00 | NUR ---
THE PATIENT APPEARED TO BE SLEEPING BUT EASILY AWOKE WHEN STAFF ENTERED THE ROOM. BED IS IN TH PRABHAKAR WPOSITION WITH SIDERAILS X2 AND CALL LIGHT WITHIN REACH. THE PATIENT DEMONSTRATES APPROPRIATE USE OF A CALL LIGHT. THE PATIENT APPEARS COMFORTABLE WITH NO QUESTIONS OR CONCERNS AT THIS TIME.
--- NOTE | 2018-08-23 03:28 | NUR ---
THE PATIENT APPEARS TO BE SLEEPING. BED IS IN THE LO WPOSITION WITH SIDERAILS X2 AND CALL LIGHT WITHIN REACH.
[2018-08-23 04:00] VITALS: BP 125/70
[2018-08-23 05:20] LABS: ALBUMIN 3.2 g/dL (3.4-5.0); ALKALINE PHOSPHATASE 76 U/L (46-116); ALT (SGPT) 44 U/L (10-68); BILIRUBIN - TOTAL 0.13 mg/dL (0.2-1.3); CALC OSMOLALITY 281 mosm/kg (275-300); CALCIUM 9.2 mg/dL (8.5-10.1); CARBON DIOXIDE 25.9 mmol/L (21.0-32.0); CHLORIDE - SERUM 104 mmol/L (98-107); CREATININE - SERUM 0.8 mg/dL (0.6-1.3); GLUCOSE 109 mg/dL (74-106); POTASSIUM - SERUM 4.4 mmol/L (3.5-5.1); PROTEIN - SERUM 6.8 g/dL (6.4-8.2); SODIUM 139 mmol/L (136-145); UREA NITROGEN 22 mg/dL (7-18); eGFR NON AFRICAN AMERICAN 77 mL/min (90-120)
--- NOTE | 2018-08-23 08:30 | NUR ---
PT ALERT X 4. BREATH SOUNDS CLEAR BILAT. IV TO LEFT FOREARM, PATENT, DRESSING CLEAN DRY AND INTACT. PAIN OF 8/10, WILL MONITOR. TRACE EDEMA TO LEFT LOWER EXTREMITY. BED LOW, CALL LIGHT IN REACH. NO OTHER NEEDS AT THIS TIME.
[2018-08-23 08:51] VITALS: BP 139/58
[2018-08-23 11:22] LABS: INR 1.32 (0.85-1.17); PROTIME 15.8 SECONDS (11.6-15.0)
[2018-08-23 13:21] VITALS: BP 110/41
[2018-08-23 17:52] VITALS: BP 105/53
[2018-08-23 20:00] VITALS: BP 125/63
--- NOTE | 2018-08-23 21:30 | NUR ---
LYING QUIELTY WITH NO COMPLAITNS VOICED. RESP EVEN AND UNLABORED. NO DISTRESS NOTED. IV INFUSING TO LFA WITHOUT REDNESS OR EDEMA NOTED. LEFT FOOT WITH DISCOLORATION TO TOES FOOT COOL TO TOUCH. CL IN REACH
[2018-08-24 04:00] VITALS: BP 110/73
--- NOTE | 2018-08-24 04:41 | NUR ---
I have reviewed this patient and I concur with the Shift Assessment completed by the Licensed Practical Nurse today this shift.
--- NOTE | 2018-08-24 07:15 | NUR ---
PATIENT RECIEVED RESTING IN BED, ADMITTED FOR PAD AND DVT. HEP DRIP INFUSING. NO NEEDS VOICED AT THIS TIME
[2018-08-24 07:16] LABS: ANION GAP 13.1 mmol/L (8-16); BILIRUBIN - TOTAL 0.09 mg/dL (0.2-1.3); CALCIUM 8.9 mg/dL (8.5-10.1); CARBON DIOXIDE 26.4 mmol/L (21.0-32.0); CREATININE - SERUM 0.9 mg/dL (0.6-1.3); POTASSIUM - SERUM 4.5 mmol/L (3.5-5.1); PROTEIN - SERUM 6.5 g/dL (6.4-8.2)
[2018-08-24 07:22] LABS: INR 1.38 (0.85-1.17); PROTIME 16.4 SECONDS (11.6-15.0)
[2018-08-24 09:14] VITALS: BP 115/53
[2018-08-24 12:41] VITALS: BP 102/63
--- NOTE | 2018-08-24 17:08 | MORECARE ---
CASE MANAGEMENT DISCHARGE SUMMARY PATIENT: NOHEMY BUCK UNIT: [id number] ADM DATE: 08/19/18 AGE: 63 : 55 SEX: F ROOM/BED: D.2229 AUTHOR: SHELLDOC PHYSICIAN: REFERRING PHYSICIAN: PACO LARES MD DATE OF SERVICE: 08/24/18 Discharge Plan Patient Name: NOHEMY BUCK Facility: [facility]:[place] : 1955 Planned Disposition: Anticipated Discharge Date: Discharge Date: Expected LOS: Initial Reviewer: [email or web address] Initial Review Date: 08/24/2018 Generated: 08/24/18 6:08 pm Comments DCP- Discharge Planning Updated by [email or web address]: Darleneanay Chacon on 08/24/18 4:[address] Patient Name: NOHEMY BUCK Admission Status: Urgent Accout number: [id number] Admission Date: 08-19-2018 : 1955 Admission Diagnosis:PERIPHERAL VASCULAR DISEASE, UNSPECIFIED Attending: PACO LARES Current LOS: 5 Anticipated DC Date: Planned Disposition: Primary Insurance: MEDICAID [place] Discharge Planning Comments: CM MET WITH PATIENT ABOUT DC PLANNING/NEEDS. STATES SHE MAY NEED A WHEEL CHAIR. WE ALSO NEED TO CHECK IF SHE NEEDS NEBS OR O2 AT HOME. I DISCUSSED DME COMPANIES AND HOME HEALTH AGENCIES WITH PATIENT, SHE STATES SHE WANTS TO WAIT TO MAKE A DECISION BECAUSE SHE MAY BE MOVING TO [place] WITH HER SISTER. CM WILL FOLLOW AND ASSIST NEEDED WITH DC PLANNING/NEEDS. Teacher Vocational Training: Darlene Chacon DCPIA - Discharge Planning Initial Assessment Updated by [email or web address]: Darlene Chacon on 08/24/18 4:59 pm * Is the patient Alert and Oriented? Yes * PCP ARNAUD * Pharmacy [facility] * Preadmission Environment Home with Family * ADLs Independent * List name and contact numbers for known caregivers / representatives who currently or will assist patient after discharge: LAINE GONSALVES, * Verbal permission to speak to the caregivers and representatives has been obtained from the patient. Yes * Community resources currently utilized None * Additional services required to return to the preadmission environment? Yes * Can the patient safely return to the preadmission environment? Yes * Has this patient been hospitalized within the prior 30 days at any hospital? No Patient Name: NOHEMY BUCK Page [phone] at 1708 All edits/amendments must be made on the electronic document DICTATION DATE: 08/24/181706 CASE MAKING MACHINE OPERATOR: MERCEDES 08/24/181706 RPT#: [id number] DC DATE: STATUS: ADM IN [facility] [address] [place] [address] END OF REPORT
[2018-08-24 17:37] VITALS: BP 115/56
[2018-08-24 20:00] VITALS: BP 178/82
[2018-08-25 04:34] VITALS: BP 111/55
[2018-08-25 05:19] LABS: BASOPHILS 0.9 % (0-2); HEMATOCRIT 31.3 % (36.0-48.0); HEMOGLOBIN 10.1 g/dL (12-16); IMMATURE GRANULOCYTES 2.7 % (0-5); LYMPHOCYTES 34.3 % (15-50); MCH 29.1 pg (26.0-34.0); MCHC 32.3 g/dL (31.0-37.0); MCV 90.2 fL (80.0-100.0); MONOCYTES 9.4 % (2-11); NEUTROPHILS 46.7 % (40-80); PLATELET COUNT 310 10x3/uL (130-400); RBC 3.47 10x6/uL (4.00-5.40); RDW 16.1 % (11.5-14.5); WBC 9.9 10x3/uL (4.8-10.8)
[2018-08-25 05:42] LABS: ANION GAP 12.4 mmol/L (8-16); CALCIUM 9.4 mg/dL (8.5-10.1); CARBON DIOXIDE 28.6 mmol/L (21.0-32.0); CREATININE - SERUM 0.9 mg/dL (0.6-1.3)
[2018-08-25 06:22] LABS: INR 1.47 (0.85-1.17); PROTIME 17.2 SECONDS (11.6-15.0)
--- NOTE | 2018-08-25 07:45 | NUR ---
PATIENT RECIEVED RESTING IN BED. ADMITTED WITH SEVERE PAD AND CHRONIC DVT TO RIGHT LOWER EXTREMITY. REDNESS IMPROVED FROM YESTERDAY. CONTINUES TO REPORT SEVERE PAIN RELIEVED MOSTLY WITH GABAPENTIN. CL IN REACH
[2018-08-25 09:25] VITALS: BP 135/53
[2018-08-25 13:43] VITALS: BP 106/56
[2018-08-25 17:29] VITALS: BP 107/49
[2018-08-25 20:00] VITALS: BP 107/47
[2018-08-26] VITALS (7 sets, daily range): BP systolic 100–152; BP diastolic 44–77
[2018-08-26 06:32] LABS: INR 1.55 (0.85-1.17)
[2018-08-26 06:33] LABS: APTT 58.4 SECONDS (22.8-39.4)
[2018-08-26 06:34] LABS: BASOPHILS 0.8 % (0-2); EOSINOPHILS 6.2 % (0-7); HEMATOCRIT 33.4 % (36.0-48.0); HEMOGLOBIN 10.8 g/dL (12-16); IMMATURE GRANULOCYTES 4.3 % (0-5); LYMPHOCYTES 22.5 % (15-50); MCH 29.3 pg (26.0-34.0); MCHC 32.3 g/dL (31.0-37.0); MCV 90.5 fL (80.0-100.0); MEAN PLATELET VOLUME 9.3 fL (7.4-10.4); MONOCYTES 10.2 % (2-11); PLATELET COUNT 337 10x3/uL (130-400); RBC 3.69 10x6/uL (4.00-5.40); RDW 16.1 % (11.5-14.5)
[2018-08-26 06:40] LABS: ANION GAP 12.6 mmol/L (8-16); CALCIUM 9.8 mg/dL (8.5-10.1); CARBON DIOXIDE 29.4 mmol/L (21.0-32.0)
--- NOTE | 2018-08-26 10:16 | NUR ---
PT IS SLEEPING ON RIGHT SIDE. SHE IS WITHOUT SIGNS OF DISTRESS.CALL LIGHT IN REACH
--- NOTE | 2018-08-26 10:38 | NUR ---
APTT OF 75.6. NO CHANGE TO DRIP RATE, NO BOLUS, PER HEPARIN PROTOCOL. NEXT LAB DRAW WITH MORNING LABS.
--- NOTE | 2018-08-26 11:49 | NUR ---
C/O SEVERE PAIN OF 10/10 TO RIGHT LOWER LEG, TENDER TO TOUCH, RED, SWOLLEN, NO PULSE HEARD WITH DOPPLER OR PALPATED. CONTACTED KECIA RODRIGUEZ APRN, AND SHE INSTRUCTED ME TO CALL SAMY MOSLEY SINCE HE IS THE CONSULTING. CALLED OFFICE WAITING MAINTAINABILITY ENGINEER BACK.
[2018-08-27 00:57] VITALS: BP 161/108
--- NOTE | 2018-08-27 04:00 | NUR ---
I have reviewed this patient and I concur with the Shift Assessment completed by the Licensed Practical Nurse today this shift.
[2018-08-27 05:16] VITALS: BP 186/84
[2018-08-27 05:48] LABS: BASOPHILS 0.7 % (0-2); EOSINOPHILS 6.4 % (0-7); HEMATOCRIT 31.5 % (36.0-48.0); HEMOGLOBIN 10.1 g/dL (12-16); IMMATURE GRANULOCYTES 5.2 % (0-5); LYMPHOCYTES 23.9 % (15-50); MCHC 32.1 g/dL (31.0-37.0); MCV 90.5 fL (80.0-100.0); MEAN PLATELET VOLUME 9.2 fL (7.4-10.4); MONOCYTES 12.6 % (2-11); NEUTROPHILS 51.2 % (40-80); PLATELET COUNT 325 10x3/uL (130-400); RBC 3.48 10x6/uL (4.00-5.40); RDW 16.4 % (11.5-14.5); WBC 12.6 10x3/uL (4.8-10.8)
[2018-08-27 06:10] LABS: INR 1.63 (0.85-1.17); PROTIME 18.7 SECONDS (11.6-15.0)
[2018-08-27 06:18] LABS: APTT 101.5 SECONDS (22.8-39.4)
[2018-08-27 06:19] LABS: ANION GAP 13.8 mmol/L (8-16); CALCIUM 8.7 mg/dL (8.5-10.1); POTASSIUM - SERUM 4.8 mmol/L (3.5-5.1)
[2018-08-27 06:22] LABS: CREATININE - SERUM 1.3 mg/dL (0.6-1.3)
[2018-08-27 08:19] VITALS: BP 111/43
--- NOTE | 2018-08-27 08:26 | NUR ---
ALERT AND ORIENTED WITH RLE COOL TO TOUCH WITH PAIN 10/10. NO PEDAL PULSES NOTED WITHOUT DISCOLORATION. NORCO GIVEN FOR PAIN. LUNGS CTA. ABD SOFT WITH BS NOTED. HEPARIN DRIP INFUSING AT PRESCRIBED RATE AT 9CC/HR. ENCOURAGED TO USE CALL LIGHT FOR ASSIST
[2018-08-27 12:00] VITALS: BP 90/44
[2018-08-27 17:42] VITALS: BP 94/62
[2018-08-27 20:53] VITALS: BP 101/48
--- NOTE | 2018-08-28 03:13 | NUR ---
I have reviewed this patient and I concur with the Shift Assessment completed by the Licensed Practical Nurse today this shift.
[2018-08-28 04:00] VITALS: BP 124/68
[2018-08-28 05:03] LABS: INR 1.82 (0.85-1.17); PROTIME 20.5 SECONDS (11.6-15.0)
[2018-08-28 05:04] LABS: APTT 82.6 SECONDS (22.8-39.4)
[2018-08-28 05:06] LABS: ANION GAP 16.8 mmol/L (8-16); CREATININE - SERUM 1.4 mg/dL (0.6-1.3); POTASSIUM - SERUM 4.8 mmol/L (3.5-5.1)
[2018-08-28 05:08] LABS: HEMOGLOBIN 10.4 g/dL (12-16); MCH 29.4 pg (26.0-34.0); MCHC 32.5 g/dL (31.0-37.0); MCV 90.4 fL (80.0-100.0); MEAN PLATELET VOLUME 8.9 fL (7.4-10.4); PLATELET COUNT 352 10x3/uL (130-400); RBC 3.54 10x6/uL (4.00-5.40); RDW 16.3 % (11.5-14.5); WBC 13.4 10x3/uL (4.8-10.8)
[2018-08-28 06:04] LABS: LYMPHOCYTES 35 % (15-50); MONOCYTES 5 % (2-11); NEUTROPHILS 58 % (40-80); PLATELET ESTIMATE NORMAL
[2018-08-28 08:13] VITALS: BP 100/51
[2018-08-28 13:44] VITALS: BP 110/60
[2018-08-28 17:47] VITALS: BP 101/50
--- NOTE | 2018-08-28 18:20 | NUR ---
ALERT AND ORIENTED. HEPARIN GTT INFUSING AT 9CC/HR. QITH NO ABNORMAL BLEEDING NOTED. HYDORCODONE AND DILAUDID GIVEN FOR PAIN AND EFFECTIVE. NO DISCOLORATION NOTED TO RLE OR EDEMA. NEGATIVE PEDAL PULSE TO RLE. ENCOURAGED TO USE CALL LIGHT FOR ASSIST.
--- NOTE | 2018-08-28 19:15 | NUR ---
RECEIVED REPORT, ASSUMED CARE, A&O, DENIES NEEDS, CALL LIGHT IN REACH, BED LOWEST POSITION, WILL CONTINUE TO MONITOR
[2018-08-28 20:00] VITALS: BP 95/52
[2018-08-29] VITALS: BP 97/60
[2018-08-29 03:00] VITALS: BP 95/56
--- NOTE | 2018-08-29 05:03 | NUR ---
I have reviewed this patient and I concur with the Shift Assessment completed by the Licensed Practical Nurse today this shift.
[2018-08-29 05:21] LABS: BASOPHILS 0.9 % (0-2); EOSINOPHILS 7.5 % (0-7); HEMATOCRIT 29.5 % (36.0-48.0); HEMOGLOBIN 9.5 g/dL (12-16); IMMATURE GRANULOCYTES 5.9 % (0-5); LYMPHOCYTES 31.7 % (15-50); MCH 29.3 pg (26.0-34.0); MCHC 32.2 g/dL (31.0-37.0); MEAN PLATELET VOLUME 9.1 fL (7.4-10.4); MONOCYTES 10.3 % (2-11); NEUTROPHILS 43.7 % (40-80); PLATELET COUNT 349 10x3/uL (130-400); RBC 3.24 10x6/uL (4.00-5.40); WBC 10.2 10x3/uL (4.8-10.8)
[2018-08-29 06:08] LABS: CALCIUM 9.1 mg/dL (8.5-10.1)
[2018-08-29 07:04] LABS: INR 2.12 (0.85-1.17); PROTIME 23.1 SECONDS (11.6-15.0)
[2018-08-29 07:05] LABS: APTT 90.1 SECONDS (22.8-39.4)
[2018-08-29 08:15] VITALS: BP 108/55
--- NOTE | 2018-08-29 08:30 | NUR ---
PATIENT IN BED WITH IV INTACT. PAIN MEDS GIVEN. NO OTHER COMPLAINTS. RLE RED AREAS AND RIGHT GREAT TOE DISCOLORED AND WARM. NO PULSE FELT. FOOT IS WARM AT THIS TIME. CALL LIGHT WITHIN REACH.
--- NOTE | 2018-08-29 12:35 | NUR ---
NUTRITION F/U PT TOLERATING DIET WITH GOOD INTAKE RECENT MEALS. SPOKE TO PT RE:COUMADIN DIET. PT REPORTS MANAGER OF PATIENT USE, NEEDS NO FURTHER INFO. RD FOLLOWING
[2018-08-29 13:55] VITALS: BP 116/49
--- NOTE | 2018-08-29 16:40 | NUR ---
PATIENT MAD AND STATED THAT SHE ASKED FOR PAIN MED AND DIDNT RECIEVE IT EARLIER A LITTLE AFTER 3. EXPLAINED TO PATIENT I WAS IN PROCEDURE WITH REFERRAL CLERK AND WAS UNAWARE BUT I WOULD GIVE HER PAIN MED AT THIS TIME. VERBALIZED UNDERSTANDING. IV INTACT. CALL LIGHT WITHIN REACH.
[2018-08-29 17:27] VITALS: BP 109/46
--- NOTE | 2018-08-29 18:55 | NUR ---
PATIENT IN BED WITH EYES CLOSED RESTING QUIETLY AT THIS TIME. CALL LIGHT WITHIN REACH.
[2018-08-29 20:00] VITALS: BP 136/82
--- NOTE | 2018-08-29 21:16 | NUR ---
PT ALERT X 4. BREATH SOUNDS CLEAR BILAT, COURSE PRODUCTIVE COUGH, SPUTUM GREEN. IV TO LEFT FOREARM, PATENT, DRESSING CDI. RIGHT LOWER LEG AND FOOT RED, RIGHT GREAT TOE PURPLISH, THIS IS CHRONIC. PT REPORTING PAIN OF 10/10, MEDICATED PER ORDERS, WILL MONITOR. BED LOW, CALL LIGHT IN REACH. NO OTHER NEEDS AT THIS TIME.
[2018-08-30] VITALS: BP 132/62
[2018-08-30 05:35] LABS: BASOPHILS 0.6 % (0-2); EOSINOPHILS 8.5 % (0-7); HEMATOCRIT 31.1 % (36.0-48.0); HEMOGLOBIN 9.9 g/dL (12-16); IMMATURE GRANULOCYTES 4.2 % (0-5); LYMPHOCYTES 24.2 % (15-50); MCH 28.9 pg (26.0-34.0); MCHC 31.8 g/dL (31.0-37.0); MCV 90.7 fL (80.0-100.0); MEAN PLATELET VOLUME 9.1 fL (7.4-10.4); MONOCYTES 11.7 % (2-11); NEUTROPHILS 50.8 % (40-80); PLATELET COUNT 381 10x3/uL (130-400); RBC 3.43 10x6/uL (4.00-5.40); RDW 15.9 % (11.5-14.5); WBC 11.6 10x3/uL (4.8-10.8)
[2018-08-30 06:15] LABS: ALBUMIN 3.2 g/dL (3.4-5.0); ANION GAP 13.5 mmol/L (8-16); BILIRUBIN - TOTAL 0.14 mg/dL (0.2-1.3); CALCIUM 9.8 mg/dL (8.5-10.1); CARBON DIOXIDE 26.2 mmol/L (21.0-32.0); CREATININE - SERUM 1.1 mg/dL (0.6-1.3); POTASSIUM - SERUM 4.7 mmol/L (3.5-5.1); PROTEIN - SERUM 7.1 g/dL (6.4-8.2)
[2018-08-30 08:32] LABS: INR 1.87 (0.85-1.17); PROTIME 20.9 SECONDS (11.6-15.0)
--- NOTE | 2018-08-30 08:45 | NUR ---
PATIENT SITTING UP IN BED WITH IV INTACT. N O COMPLAINTS OR SIGNS OF DISTRESS. CALL LIGHT WITHIN REACH.
[2018-08-30 09:58] VITALS: BP 118/65
[2018-08-30 11:53] VITALS: BP 120/52
[2018-08-30] MEDS ORDERED: COUMADIN7.5 MG PO (13:44)
[2018-08-30] MEDS ORDERED: Nicoderm [PBKC] TRANSDERM (13:44)
[2018-08-30] MEDS ORDERED: LOVENOX30 MG/0.3 SC (13:45)
--- NOTE | 2018-08-30 13:56 | MORECARE ---
CASE MANAGEMENT DISCHARGE SUMMARY PATIENT: NOHEMY BUCK UNIT: [id number] ADM DATE: 08/19/18 AGE: 63 : 55 SEX: F ROOM/BED: D.2229 AUTHOR: SHELLDOC PHYSICIAN: REFERRING PHYSICIAN: PACO LARES MD DATE OF SERVICE: 08/30/18 Discharge Plan Patient Name: NOHEMY BUCK Facility: [facility]:[place] : 1955 Planned Disposition: Anticipated Discharge Date: Discharge Date: Expected LOS: Initial Reviewer: [email or web address] Initial Review Date: 08/24/2018 Generated: 08/30/18 2:55 pm DCP- Discharge Planning Updated by [email or web address]: Darlene Chacon on 08/24/18 4:[address] Patient Name: NOHEMY BUCK Admission Status: Urgent Accout number: [id number] Admission Date: 08-19-2018 : 1955 Admission Diagnosis:PERIPHERAL VASCULAR DISEASE, UNSPECIFIED Attending: PACO LARES Current LOS: 5 Anticipated DC Date: Planned Disposition: Primary Insurance: MEDICAID [place] Discharge Planning Comments: CM MET WITH PATIENT ABOUT DC PLANNING/NEEDS. STATES SHE MAY NEED A WHEEL CHAIR. WE ALSO NEED TO CHECK IF SHE NEEDS NEBS OR O2 AT HOME. I DISCUSSED DME COMPANIES AND HOME HEALTH AGENCIES WITH PATIENT, SHE STATES SHE WANTS TO WAIT TO MAKE A DECISION BECAUSE SHE MAY BE MOVING TO [place] WITH HER SISTER. CM WILL FOLLOW AND ASSIST NEEDED WITH DC PLANNING/NEEDS. Drapery Head Former: Darlene Chacon DCPIA - Discharge Planning Initial Assessment Updated by [email or web address]: Darlene Chacon on 08/24/18 4:59 pm * Is the patient Alert and Oriented? Yes * PCP ARNAUD * Pharmacy [facility] * Preadmission Environment Home with Family * ADLs Independent * List name and contact numbers for known caregivers / representatives who currently or will assist patient after discharge: LAINE GONSALVES, * Verbal permission to speak to the caregivers and representatives has been obtained from the patient. Yes * Community resources currently utilized None * Additional services required to return to the preadmission environment? Yes * Can the patient safely return to the preadmission environment? Yes * Has this patient been hospitalized within the prior 30 days at any hospital? No External Providers [facility] Provider[facility] Next Contact Date: Service Request Date: Service Type: Resolution: Reviewer: Comments: Last DP export: 08/24/18 4:08 p Patient Name: NOHEMY BUCK Page [phone] at 1356 All edits/amendments must be made on the electronic document DICTATION DATE: 08/30/18 1358 CONSTRUCTION TRADES TEACHER: MERCEDES 08/30/18 1355 RPT#: [id number] DC DATE: STATUS: ADM IN [facility] [address] [place] [address] END OF REPORT
--- NOTE | 2018-08-30 14:08 | MORECARE ---
CASE MANAGEMENT DISCHARGE SUMMARY PATIENT: NOHEMY BUCK UNIT: [id number] ADM DATE: 08/19/18 AGE: 63 : 55 SEX: F ROOM/BED: D.2229 AUTHOR: ARIANNE GOFF PHYSICIAN: REFERRING PHYSICIAN: PACO LARES MD DATE OF SERVICE: 08/30/18 Discharge Plan Patient Name: NOHEMY BUCK Facility: [facility]:[place] : 1955 Planned Disposition: Anticipated Discharge Date: Discharge Date: Expected LOS: Initial Reviewer: [email or web address] Initial Review Date: 08/24/2018 Generated: 08/30/18 3:07 pm Comments DCP- Discharge Planning Updated by [email or web address]: Sheila José on 08/30/18 1:[address] Patient Name: NOHEMY BUCK Encounter No: [id number] : 1955 Primary Insurance: MEDICAID [place] Anticipated DC Date: Planned Disposition: External Planned Provider: : DCP follow-up note: Patient and family in agreement with discharge plan. No changes to plan. She states she needs a walker and a shower chair at home. Denies other needs at this time. KHADIJAH for [facility] signed. I called [facility] and faxed order and clinical for walker and shower chair to be delivered to the hospital. Case management will follow and assist as needed. Sheila Arnav DCP- Discharge Planning Updated by [email or web address]: aDrlene Chacon on 08/24/18 4:[address] Patient Name: NOHEMY BUCK Admission Status: Urgent Accout number: [id number] Admission Date: 08-19-2018 : 1955 Admission Diagnosis:PERIPHERAL VASCULAR DISEASE, UNSPECIFIED Attending: PACO LARES Current LOS: 5 Anticipated DC Date: Planned Disposition: Primary Insurance: MEDICAID [place] Discharge Planning Comments: CM MET WITH PATIENT ABOUT DC PLANNING/NEEDS. STATES SHE MAY NEED A WHEEL CHAIR. WE ALSO NEED TO CHECK IF SHE NEEDS NEBS OR O2 AT HOME. I DISCUSSED [employer] COMPANIES AND HOME HEALTH AGENCIES WITH PATIENT, SHE STATES SHE WANTS TO WAIT TO MAKE A DECISION BECAUSE SHE MAY BE MOVING TO [place] WITH HER SISTER. CM WILL FOLLOW AND ASSIST NEEDED WITH DC PLANNING/NEEDS. Jack Spinner: Darlene Chacon DCPIA - Discharge Planning Initial Assessment Updated by [email or web address]: Darlene Chacon on 08/24/18 4:59 pm * Is the patient Alert and Oriented? Yes * PCP ARNAUD * Pharmacy [facility] * Preadmission Environment Home with Family * ADLs Independent * List name and contact numbers for known caregivers / representatives who currently or will assist patient after discharge: LAINE GONSALVES, * Verbal permission to speak to the caregivers and representatives has been obtained from the patient. Yes * Community resources currently utilized None * Additional services required to return to the preadmission environment? Yes * Can the patient safely return to the preadmission environment? Yes * Has this patient been hospitalized within the prior 30 days at any hospital? No Coverage Notice Reviewer: [id number] Gibran José Notice Issued Date-Time: 08/30/2018 14:02 Notice Type: Patient Choice Letter Notice Delivered To: Patient Relationship to Patient: Avionics Electronics Technician Name: Delivery Method: HAND - Hand Delivered Sadie Days: Prior Verbal Notification: Recipient Understood Notice: Yes Recipient Signature: Yes Med Rec Note Co-signed by Attending: Coverage Notice Comment: Javier for DME Last DP export: 08/30/18 12:56 p Patient Name: NOHEMY BUCK Page [id number] at 1408 All edits/amendments must be made on the electronic document DICTATION DATE: 08/30/181406 RADIOLOGIC TECHNICIAN: MERCEDES 08/30/18 1407 RPT#: [id number] DC DATE: STATUS: ADM IN [facility] [address] [place] [address] END OF REPORT
[2018-08-30] MEDS ORDERED: PERCOCET 10-321 EAC1 PO (14:50)
--- NOTE | 2018-08-30 15:45 | NUR ---
PATIENT IN BED WITH IV INTACT. NO COMPLAINTS OR SIGNS OF DISTRESS. FAMILY AT BEDSIDE. CALL LIGHT WITHIN REACH.
[2018-08-30 16:57] VITALS: BP 118/68
--- NOTE | 2018-08-30 17:15 | NUR ---
PATIENT RECIEVED DC INSTRUCTIONS. VERBALIZED UNDERSTANDING. NO QUESTIONS AT THIS TIME. FAMILY AT BEDSIDE. IV OUT. PULLED OUT EARLIER BY PATIENT, WITH CATH TIP INTACT. CALL LIGHT WITHIN REACH.
--- NOTE | 2018-08-30 17:31 | NUR ---
PATIENT IN CHAIR AT THIS TIME WITH NO COMPLAINTS OR SIGNS OF DISTRESS. FAMILY AT BEDSIDE. ASSISTED DOWN TO PRIVATE VEHICLE WITH PERSONAL BELONGINGS IN WC WITH [employer] COACH AND FAMILY.
== END 2018-08-30 17:37 | disposition home or self-care (01) | DRG 300 ==
LOC: D.MS 16:20
PROVIDERS: Family Medicine; Internal Medicine Nephrology; Thoracic Surgery (Cardiothoracic Vascular Surgery); ADMIT Family Medicine; ATTEND Family Medicine
DX: I70.248 Atherosclerosis of native arteries of left leg with ulceration of other part of lower leg (principal); I82.409 Acute embolism and thrombosis of unspecified deep veins of unspecified lower extremity; L97.821 Non-pressure chronic ulcer of other part of left lower leg limited to breakdown of skin; F41.9 Anxiety disorder, unspecified; I10 Essential (primary) hypertension; E78.5 Hyperlipidemia, unspecified